=== PATIENT | female | born 1960 ===

== ENCOUNTER 2017-11-01 09:10 | Emergency (ER) | payer MEDICARE, MEDICAID ==
[2017-11-01 09:20] VITALS: BP 125/87; PULSE 98; RESP 20; TEMP 98.1; O2SAT 99
--- NOTE | 2017-11-01 09:47 | C.PDOC ---
History Of Present Illness 57 year old female, with PMHx of depression, presents to ED requesting refills of her anti-depressant medication. Pt states she has been felling "a little down lately". Also reports suicidal ideation for the last few days. Denies suicidal attempts, suicidal plan, homicidal ideation, chest pain, SOB, cough, n/ v/d, abdominal pain, or any active physical complaints at this time. Ambulate to ED for evaluation, not in nay apparent distress. Time Seen by Provider: 11/01/17 09:18 Chief Complaint (Nursing): Psychiatric Evaluation History Per: Patient History/Exam Limitations: no limitations Onset/Duration Of Symptoms: Days, Gradual Current Symptoms Are (Timing): Still Present Suicide/Self Injury Attempted (Context): None Modifying Factor(s): None Severity: None Pain Scale Rating Of: 0 Associated Symptoms: Suicidal Thoughts. denies: Suicidal Plan Involuntary Hold By: None Recent travel outside of the [place]: No Additional History Per: Patient Past Medical History Reviewed: Historical Data, Nursing Documentation, Vital Signs Vital Signs: Last Vital Signs Temp 98.1 F 11/01/17 09:16 Pulse 98 H 11/01/17 09:16 Resp 20 11/01/17 09:16 BP 125/87 11/01/17 09:16 Pulse Ox 99 11/01/17 10:47 - Medical History PMH: Anxiety, Arthritis, Depression, HTN, Hypercholesterolemia Denies: HIV, Seizures, Sexually Transmitted Disease Surgical History: Cholecystectomy - [facility] Procedures RELEASE PERITONEUM, PERCUTANEOUS ENDOSCOPIC APPROACH (05/01/16) RESECTION OF GALLBLADDER, PERCUTANEOUS ENDOSCOPIC APPROACH (05/01/16) Family History: States: Unknown Family Hx - Social History Hx Tobacco Use: No Hx Alcohol Use: No Hx Substance Use: No - Immunization History Hx Tetanus Toxoid Vaccination: No Hx Influenza Vaccination: Yes (up to date) Hx Pneumococcal Vaccination: No Review Of Systems Except As Marked, All Systems Reviewed And Found Negative. Constitutional: Negative for: Fever, Chills Cardiovascular: Negative for: Chest Pain, Palpitations, Edema Respiratory: Negative for: Cough, Shortness of Breath, Wheezing Gastrointestinal: Negative for: Nausea, Vomiting, Abdominal Pain Skin: Negative for: Rash, Bruising Neurological: Negative for: Headache, Dizziness Psych: Positive for: Depression, Suicidal ideation Physical Exam - Physical Exam Appears: Non-toxic, No Acute Distress Skin: Warm, Dry, No Rash Head: Normacephalic Eye(s): bilateral: PERRL Nose: No Flaring Oral Mucosa: Moist, No Drooling Tongue: Normal Appearing Lips: Normal Appearing Throat: No Erythema, No Drooling Neck: Normal ROM, Supple Chest: Symmetrical Cardiovascular: Rhythm Regular, No Murmur Respiratory: No Decreased Breath Sounds, No Accessory Muscle Use, No Rales, No Rhonchi, No Stridor, No Wheezing Gastrointestinal/Abdominal: Soft, No Tenderness, No Distention, No Guarding Back: No CVA Tenderness Extremity: Normal ROM, No Tenderness, No Deformity, No Swelling Neurological/Psych: Oriented x3, Normal Speech, Normal Motor, Normal Sensation, Normal Reflexes ED Course And Treatment O2 Sat by Pulse Oximetry: 99 (RA) Pulse Ox Interpretation: Normal Progress Note: Pt appears comforatble, appropriate, not inany apparent distress. Pt denies suicidal or homocidal ideation or attempts at present time. Pt was seen by [facility] and Outpt f/u with [facility] clinic now recommend for further medication refill. Pt admits, [facility]- advised to keep for further eval and tx as need. return to ED if any worsening or new changes. Pt udenrstand and agrees with discharges now. Disposition Counseled Patient/Family Regarding: Diagnosis, Need For Followup - Disposition Referrals: [facility] [Outside] Disposition: HOME/ ROUTINE Disposition Time: 10:43 Condition: STABLE Additional Instructions: Please, go to [facility] now for medication refill return to ED if any new changes. Instructions: Depression Forms: [employer] (Georgian) Print Language: KYRGYZ - Clinical Impression Clinical Impression: Depression, Medicine refill - PA / LOSS PREVENTION DETECTIVE / Resident Statement MD/DO has reviewed & agrees with the documentation as recorded. - Scribe Statement The provider has reviewed the documentation as recorded by the Rey Garrison All medical record entries made by the Rey were at my direction and personally dictated by me. I have reviewed the chart and agree that the record accurately reflects my personal performance of the history, physical exam, medical decision making, and the department course for this patient. I have also personally directed, reviewed, and agree with the discharge instructions and disposition.
== END 2017-11-01 11:15 | disposition home or self-care (01) ==
LOC: C.ER 09:10
DX: F32.9 Major depressive disorder, single episode, unspecified (principal); Z76.0 Encounter for issue of repeat prescription